=== PATIENT | female | born 1980 | race Caucasian/White ===

== ENCOUNTER 2021-01-23 05:36 | Observation (INO) ==
[2021-01-23] MEDS ORDERED: Tdap (Boostrix) Vaccine 0.5 ML SYRINGE IM ONE (05:46)
[2021-01-23] MEDS ORDERED: *HR* LORazepam 1 MG TABLET PO ONE (07:32)
[2021-01-23] MEDS ORDERED: Haloperidol Lactate 5 MG/ML VIAL IM PRN (09:31)
[2021-01-23] MEDS ORDERED: *HR* LORazepam 1 MG TABLET PO PRN (09:31)
[2021-01-23] MEDS ORDERED: Acetaminophen 325 MG TABLET PO PRN (09:31)
[2021-01-23] MEDS ORDERED: QUEtiapine Fumarate 25 MG TABLET PO PRN (09:31)
[2021-01-23] MEDS ORDERED: haloperidoL 5 MG TABLET PO PRN (09:31)
[2021-01-23] MEDS ORDERED: hydrOXYzine pamoate 25 MG CAPSULE PO PRN (09:31)
[2021-01-23] MEDS ORDERED: *HR* LORazepam 2 MG/ML VIAL IM PRN (09:31)
[2021-01-23 10:55] VITALS: BP 163/101
[2021-01-23] MEDS ORDERED: Nicotine 2 MG GUM BC PRN (11:00)
[2021-01-24] MEDS ORDERED: Nicotine 21 MG PATCH.TD24 TD SCH (09:00)
== END 2021-01-23 16:10 | disposition home or self-care (01) ==
LOC: EMEROOARM 05:36 → 1ANU 09:24 → INTOOBSV 09:24 → 1ANU 10:45
PROVIDERS: ADMIT Psychiatry & Neurology Psychiatry; ATTEND Psychiatry & Neurology Psychiatry